=== PATIENT | female | born 1940 | race Caucasian/White ===

== ENCOUNTER 2016-12-24 11:21 | Outpatient (CLI) | payer MEDICARE, OTHER | END 2016-12-24 23:59 | DX: D64.9 Anemia, unspecified (principal); G89.4 Chronic pain syndrome; E03.9 Hypothyroidism, unspecified ==

== ENCOUNTER 2018-01-26 08:00 | Outpatient (CLI) | payer MEDICARE | END 2018-01-26 08:01 | disposition home or self-care (01) | LOC: LAB.R 08:00 | PROVIDERS: ATTEND Physician Assistant Medical | DX: N39.0 Urinary tract infection, site not specified (principal) | CPT/HCPCS: 87086 ==

== ENCOUNTER 2018-05-30 08:00 | Outpatient (CLI) | payer MEDICARE, OTHER ==
[2018-05-30 18:49] LABS: HGB - HEMOGLOBIN 8.5 g/dL (12.0-16.0); MEAN CORPUSCULAR HEMOGLOBIN 30.3 pg (27.0-31.0); MEAN CORPUSCULAR HGB CONC 31.6 g/dL (32.0-36.0); MEAN CORPUSCULAR VOLUME 96.1 fL (81.0-99.0); MEAN PLATELET VOLUME 9.3 fL (7.9-10.8); RED BLOOD COUNT 2.81 10^6/uL (4.20-5.40); RED CELL DISTRIBUTION WIDTH 14.8 % (12.0-15.0); WHITE BLOOD COUNT 6.1 x10^3/uL (4.8-10.8)
[2018-05-30 18:57] LABS: BILIRUBIN,URINE NEGATIVE (NEGATIVE); GLUCOSE, URINE (UA) NEGATIVE (NEGATIVE); KETONES,URINE (UA) NEGATIVE (NEGATIVE); LEUKOCYTE ESTERASE, URINE NEGATIVE (NEGATIVE); NITRITE,URINE NEGATIVE (NEGATIVE); OCCULT BLOOD,URINE NEGATIVE (NEGATIVE); PH,URINE 5.5 PH (5.0-7.5); PROTEIN,URINE NEGATIVE (NEGATIVE); UROBILINOGEN,URINE 0.2 (NORMAL) E.U./dL (NORMAL)
[2018-05-30 19:00] LABS: CALCIUM 8.7 mg/dL (8.5-10.3)
[2018-05-30 19:01] LABS: CLARITY,URINE CLEAR (CLEAR)
[2018-05-30 19:06] LABS: BACTERIA,URINE None Seen /HPF (None Seen); CASTS, URINE 6-10 Hyaline Casts /LPF; EPITHELIAL CELLS,UR None Seen /HPF (<= Few); RBC,URINE 0-5 /HPF (0-5); SQUAMOUS EPITHELIAL CELL,UR RARE Squamous (<= Few)
== END 2018-05-30 08:01 | disposition home or self-care (01) ==
LOC: LAB.WCP 08:00
PROVIDERS: ATTEND Family Medicine
DX: R60.0 Localized edema (principal)
CPT/HCPCS: 36415; 80048; 81001; 85027

== ENCOUNTER 2018-06-13 08:00 | Outpatient (CLI) | payer MEDICARE, OTHER ==
[2018-06-13 12:54] LABS: BASOPHILS % (AUTO) 0.5 %; EOSINOPHILS # (AUTO) 0.3 10^3/uL (0.0-0.7); EOSINOPHILS % (AUTO) 4.6 %; HGB - HEMOGLOBIN 8.9 g/dL (12.0-16.0); LYMPHOCYTES # (AUTO) 1.2 10^3/uL (1.5-3.5); LYMPHOCYTES % (AUTO) 19.1 %; MEAN CORPUSCULAR HEMOGLOBIN 30.7 pg (27.0-31.0); MEAN CORPUSCULAR VOLUME 96.1 fL (81.0-99.0); MONOCYTES # (AUTO) 0.5 10^3/uL (0.0-1.0); MONOCYTES % (AUTO) 8.5 %; NEUTROPHILS # (AUTO) 4.1 10^3/uL (1.5-6.6); NEUTROPHILS % (AUTO) 67.3 %; PLT - PLATELET COUNT 256 10^3/uL (130-450); RED BLOOD COUNT 2.89 10^6/uL (4.20-5.40); RED CELL DISTRIBUTION WIDTH 15.1 % (12.0-15.0); WHITE BLOOD COUNT 6.1 x10^3/uL (4.8-10.8)
[2018-06-13 14:07] LABS: ALBUMIN 2.4 g/dL (3.2-5.5); ALBUMIN/GLOBULIN RATIO 0.8 (1.0-2.2); BILIRUBIN,TOTAL 0.3 mg/dL (0.2-1.0); CALCIUM 8.6 mg/dL (8.5-10.3); CREATININE 1.1 mg/dL (0.4-1.0); TOTAL PROTEIN 5.4 g/dL (6.7-8.2)
== END 2018-06-13 08:01 | disposition home or self-care (01) ==
LOC: LAB.WCP 08:00
PROVIDERS: ATTEND Family Medicine
DX: D64.9 Anemia, unspecified (principal); I11.0 Hypertensive heart disease with heart failure; I50.9 Heart failure, unspecified; R60.0 Localized edema; E03.9 Hypothyroidism, unspecified
CPT/HCPCS: 36415; 80053; 83880; 84443; 85025

== ENCOUNTER 2018-09-30 17:30 | Emergency (ER) | payer MEDICARE, OTHER ==
--- NOTE | 2018-09-30 19:01 | XRAY Report ---
Reason: left shoulder injury after fall Procedure Date: 09/30/2018 Accession Number: [id number] / [id number] Procedure: XR - Shoulder 3 View LT CPT Code: FULL RESULT: EXAM: LEFT SHOULDER RADIOGRAPHY EXAM DATE: 09/30/2018 06:28 PM. CLINICAL HISTORY: Left shoulder injury after fall. COMPARISON: None. TECHNIQUE: 4 views. FINDINGS: Bones: Oblique mildly comminuted fracture of the proximal humeral shaft and neck with mild displacement and angulation. Joints: No dislocation. Narrowing, sclerosis, and spurring of the glenohumeral joint. Soft tissues: The visualized hemithorax is unremarkable. Soft tissue calcification next to the tuberosities. IMPRESSION: 1. Mildly angulated mildly displaced fracture of the proximal humeral shaft/neck. 2. Osteoarthritis of the glenohumeral joint. 3. Calcific tendinitis. RADIA
--- NOTE | 2018-09-30 19:06 | ED Physician Documentation ---
PD HPI UPPER EXT INJURY - Stated complaint Stated Complaint: GLF,L ARM PX - Chief complaint Chief Complaint: Ext Problem - History obtained from History obtained from: Patient - History of Present Illness Location: Left, Shoulder, Arm Type of injury: Fall (she describes tripping on curb stone and falling. Pain to left shoulder/arm. Denies injury to face/neck/chest/abd.) Timing - onset: Today Timing - details: Abrupt onset Improved by: Rest Worsened by: Moving, Palpating Associated symptoms: No: Weakness, Numbness Contributing factors: No: Anticoagulated Similar symptoms before: Has not had sx before Recently seen: Not recently seen Review of Systems Cardiac: denies: Chest pain / pressure GI: denies: Abdominal Pain Skin: denies: Abrasion (s), Laceration (s) Musculoskeletal: denies: Neck pain, Back pain Neurologic: denies: Focal weakness, Numbness PD PAST MEDICAL HISTORY - Past Medical History Cardiovascular: Hypertension Endocrine/Autoimmune: HyPOthyroidism - Past Surgical History Past Surgical History: Yes Ortho: Hip replacement, Knee replacement, Spine surgery - Present Medications Home Medications: Ambulatory Orders Medication Instructions Recorded Confirmed HYDROcod/ACETAM 5/325 [[place] 5/325] 1 tab PO Q6H PRN #20 tablet 09/30/18 FLUoxetine [PROzac] 20 mg PO DAILY 10/02/18 10/02/18 Ferrous Sulfate 325 mg PO 10/02/18 Hydrochlorothiazide 12.5 mg PO 10/02/18 Levothyroxine Sodium [Synthroid] 100 mcg PO 10/02/18 10/02/18 Lisinopril 40 mg PO 10/02/18 Morphine Sulfate 15 mg PO BID PRN 10/02/18 10/02/18 Morphine Sulfate 30 mg PO PRN 10/02/18 - Allergies Allergies/Adverse Reactions: Allergies Allergy/AdvReac Type Severity Reaction Status Date / Time prochlorperazine Allergy Anaphylaxis Verified 10/02/18 08:11 [From Compazine] prochlorperazine edisylate * Allergy Anaphylaxis Verified 10/02/18 08:11 [From Compazine] prochlorperazine maleate * Allergy Anaphylaxis Verified 10/02/18 08:11 [From Compazine] codeine AdvReac Nausea Verified 10/02/18 08:11 - Living Situation Living Situation: reports: With family Living Arrangement: reports: At home - Social History Does the pt smoke?: No Smoking Status: Never smoker Does the pt drink ETOH?: No Does the pt have substance abuse?: No - Immunizations Immunizations are current?: Yes PD ED PE NORMAL - Vitals Vital signs reviewed: Yes - General General: Alert and oriented X 3, No acute distress, Well developed/nourished - HEENT HEENT: Atraumatic - Neck Neck: Supple, no meningeal sign, No bony TTP, No adenopathy - Cardiac Cardiac: RRR, No murmur - Respiratory Respiratory: Clear bilaterally, Other (no chestwall tenderness) - Abdomen Abdomen: Soft, Non tender - Back Back: No spinal TTP - Derm Derm: Normal color, Warm and dry - Extremities Extremities: Other (left proximal humerus with tenderness and guarded ROM. No gross deformity. ) - Neuro Neuro: No motor deficit, No sensory deficit, Other (good pulses at wrist and cap refill at fingers. ) Results - Vitals Vitals: Oxygen O2 Source Room air - Rads (name of study) left shoulder Radiology: Prelim report reviewed, EMP read contemporaneously (proximal humeral shaft fracture. ) PD MEDICAL DECISION MAKING - ED course Complexity details: reviewed results, considered differential (proximal humerus fracture. She lives with family members, so has help. Does not use walker usually. ), d/w patient Departure - Departure Disposition: 01 Home, Self Care Clinical Impression: Fall from slip, trip, or stumble Qualifiers: Encounter type: initial encounter Qualified Code(s): W01.0XXA - Fall on same level from slipping, tripping and stumbling without subsequent striking against object, initial encounter Proximal humerus fracture Qualifiers: Encounter type: initial encounter Fracture type: closed Fracture morphology: other fracture Fracture alignment: nondisplaced Laterality: left Qualified Code(s): S42.295A - Other nondisplaced fracture of upper end of left humerus, initial encounter for closed fracture Condition: Stable Record reviewed to determine appropriate education?: Yes Instructions: ED Fx Upper Ext Follow-Up: [facility] [Provider Group] Prescriptions: HYDROcod/ACETAM 5/325 [[place] 5/325] 1 tab PO Q6H PRN #20 tablet PRN Reason: Pain Comments: Use a sling to keep the arm still to reduce pain and allow healing of the fracture. He will need to have your arm in the sling for about 6 weeks. Follow-up with orthopedics this coming week, call Wednesday for an appointment. You will need to find the best comfortable position for sleeping and rest and this often is a reclined position rather than lying flat. He can sleep with the sling. Use Tylenol or ibuprofen or naproxen if needed for pains. Add hydrocodone if needed for worse pain. The initial pain will improve over the next several days as the swelling and initial injury improved. He will then be a decrease in pain at about a week and a half as the bone segments start healing together. It will take about 6 weeks to heal up though. Discharge Date/Time: 09/30/18 20:46
[2018-09-30] MEDS ORDERED: KETOROLAC 15 MG/ML VIAL IM STA (19:32)
[2018-09-30] MEDS ORDERED: HYDROcod/ACETAM 5/325 MG TABLET PO STA (19:32)
[2018-09-30] MEDS ORDERED: MORPHINE 10 MG/ML VIAL IM STA (20:14)
[2018-09-30 20:37] VITALS: BP 138/69
== END 2018-09-30 20:46 | disposition home or self-care (01) ==
LOC: ED 17:30
DX: S42.292A Other displaced fracture of upper end of left humerus, initial encounter for closed fracture (principal); I10 Essential (primary) hypertension; W01.0XXA Fall on same level from slipping, tripping and stumbling without subsequent striking against object, initial encounter
CPT/HCPCS: 73030; 96372; 99283; 99284; A9270

== ENCOUNTER 2018-10-02 07:45 | Outpatient (CLI) | payer MEDICARE, OTHER | END 2018-10-02 07:46 | disposition critical access hospital (66) | LOC: EMS 07:45 | PROVIDERS: ATTEND Surgery | DX: M79.622 Pain in left upper arm (principal) | CPT/HCPCS: A0425; A0429 ==

== ENCOUNTER 2018-10-02 08:11 | Observation (INO) | payer MEDICARE, OTHER ==
[2018-10-02] MEDS ORDERED: MORPHINE 2 MG/ML CARPUJECT IVP STA ×2 (09:03→10:28)
--- NOTE | 2018-10-02 09:07 | ED Physician Documentation ---
History of Present Illness - Stated complaint Stated Complaint: L ARM FX - Chief complaint Chief Complaint: General - Additonal information Additional information: 78-year-old female withRecent fracture of her proximal humeral head. The dimitrios ent lives alone and was discharged and has been unable to manage her pain or her activities of daily living since returning home. The patient is not able to get out of bed secondary to the pain. The patient has not been able to manage her pain at home. The patient has not been able to make herself food or bathe herself secondary to the significant pain. No new falls or injuries. Symptoms are described as severe. The patient reports significant weakness pain and fatigue. No other associated symptoms. No relieving factors. Review of Systems Constitutional: reports: Fatigue. denies: Fever, Chills Eyes: denies: Discharge Ears: denies: Ear pain Nose: denies: Congestion Throat: denies: Sore throat Cardiac: denies: Chest pain / pressure Respiratory: denies: Cough GI: denies: Abdominal Pain : denies: Dysuria Musculoskeletal: reports: Extremity pain. denies: Neck pain Neurologic: reports: Generalized weakness Psychiatric: denies: Hallucinations PD PAST MEDICAL HISTORY - Past Medical History Past Medical History: Yes Cardiovascular: Hypertension Endocrine/Autoimmune: HyPOthyroidism - Past Surgical History Past Surgical History: Yes Ortho: Hip replacement, Knee replacement, Spine surgery - Present Medications Home Medications: Ambulatory Orders Medication Instructions Recorded Confirmed HYDROcod/ACETAM 5/325 [[place] 5/325] 1 tab PO Q6H PRN #20 tablet 09/30/18 FLUoxetine [PROzac] 20 mg PO DAILY 10/02/18 10/02/18 Ferrous Sulfate 325 mg PO 10/02/18 Hydrochlorothiazide 12.5 mg PO 10/02/18 Levothyroxine Sodium [Synthroid] 100 mcg PO 10/02/18 10/02/18 Lisinopril 40 mg PO 10/02/18 Morphine Sulfate 15 mg PO BID PRN 10/02/18 10/02/18 Morphine Sulfate 30 mg PO PRN 10/02/18 - Allergies Allergies/Adverse Reactions: Allergies Allergy/AdvReac Type Severity Reaction Status Date / Time prochlorperazine Allergy Anaphylaxis Verified 10/02/18 08:11 [From Compazine] prochlorperazine edisylate * Allergy Anaphylaxis Verified 10/02/18 08:11 [From Compazine] prochlorperazine maleate * Allergy Anaphylaxis Verified 10/02/18 08:11 [From Compazine] codeine AdvReac Nausea Verified 10/02/18 08:11 - Social History Does the pt smoke?: No Smoking Status: Never smoker Does the pt drink ETOH?: No Does the pt have substance abuse?: No - Immunizations Immunizations are current?: Yes PD ED PE NORMAL - General General: Other (78-year-old frail appearing female who appears to be in significant discomfort) - HEENT HEENT: Atraumatic, PERRL, EOMI - Neck Neck: Supple, no meningeal sign - Cardiac Cardiac: RRR, Strong equal pulses - Respiratory Respiratory: No respiratory distress - Abdomen Abdomen: Soft, Non tender - Derm Derm: Normal color - Extremities Extremities: No: No deformity (The patient has significant tenderness of the left upper extremity which is placed in a sling.), No tenderness to palpate, Normal ROM s pain - Neuro Neuro: Alert and oriented X 3, Normal speech - Psych Psych: Normal affect Results - Vitals Vitals: Vital Signs - 24 hr 10/02/18 10/02/18 08:08 10:00 Temperature 35.9 C L Heart Rate 86 86 Respiratory 18 16 Rate Blood Pressure 135/73 H 137/74 H O2 Saturation 96 97 Oxygen O2 Source Room air - EKG (time done) 09:05 Rate: Rate (enter#) Rhythm: NSR [place]: Normal Intervals: Normal OK, Prolonged QT QRS: Normal Ischemia: Normal ST segments - Labs Labs: Laboratory Tests 10/02/18 10/02/18 10/02/18 09:00 09:00 09:00 WBC 10.7 RBC 3.20 L Hgb 9.8 L Hct 28.9 L MCV 90.3 MCH 30.5 MCHC 33.8 RDW 15.2 H Plt Count 234 MPV 8.9 Neut # (Auto) 9.0 H Lymph # (Auto) 0.7 L [place] # (Auto) 0.9 Eos # (Auto) 0.0 Baso # (Auto) 0.0 Absolute Nucleated RBC 0.00 Nucleated RBC % 0.0 PT 11.5 INR 1.0 APTT 29.3 Sodium 132 L Potassium 4.2 Chloride 99 L Carbon Dioxide 26 Anion Gap 7.0 BUN 12 Creatinine 0.9 Estimated GFR (MDRD) 61 L Glucose 123 H Calcium 8.6 Total Bilirubin 1.2 H AST 19 ALT 13 Alkaline Phosphatase 84 Troponin I Total Protein 5.7 L Albumin 2.5 L Globulin 3.2 Albumin/Globulin Ratio 0.8 L Lipase 17 L Urine Color Urine Clarity Urine pH Ur Specific [place] Urine Protein Urine Glucose (UA) Urine Ketones Urine Occult Blood Urine Nitrite Urine Bilirubin Urine Urobilinogen Ur Leukocyte Esterase Ur Microscopic Review Urine Culture Comments 10/02/18 10/02/18 09:00 09:15 WBC RBC Hgb Hct MCV MCH MCHC RDW Plt Count MPV Neut # (Auto) Lymph # (Auto) [place] # (Auto) Eos # (Auto) Baso # (Auto) Absolute Nucleated RBC Nucleated RBC % PT INR APTT Sodium Potassium Chloride Carbon Dioxide Anion Gap BUN Creatinine Estimated GFR (MDRD) Glucose Calcium Total Bilirubin AST ALT Alkaline Phosphatase Troponin I < 0.04 Total Protein Albumin Globulin Albumin/Globulin Ratio Lipase Urine Color YELLOW Urine Clarity CLEAR Urine pH 7.5 Ur Specific [place] 1.015 Urine Protein NEGATIVE Urine Glucose (UA) NEGATIVE Urine Ketones NEGATIVE Urine Occult Blood TRACE-INTA Urine Nitrite NEGATIVE Urine Bilirubin NEGATIVE Urine Urobilinogen 0.2 (NORMAL) Ur Leukocyte Esterase NEGATIVE Ur Microscopic Review NOT INDICATED Urine Culture Comments NOT INDICATED PD MEDICAL DECISION MAKING - ED course ED course: 78-year-old female with An acute fracture, the patient has been unable to manage her pain at home and is not able to take care of herself. Unfortunately currently we do not have social work to help find appropriate placement for the patient. The patient will require admission to the hospital for further management of her pain and for an appropriate safe discharge.The findings and plan were discussed with the hospitalist Dr. Rodriguez who accepts the patient onto her service. The findings and plan were discussed the patient who understands and agrees to the plan. Departure - Departure Disposition: ED Place in Observation Clinical Impression: Intractable pain, Weakness Humerus fracture Qualifiers: Encounter type: subsequent encounter Humerus Location: proximal Fracture type: closed Fracture morphology: unspecified fracture morphology Laterality: unspecified laterality Fracture healing: with routine healing Qualified Code(s): S42.209D - Unspecified fracture of upper end of unspecified humerus, subsequent encounter for fracture with routine healing Condition: Fair
[2018-10-02 09:11] LABS: BASOPHILS % (AUTO) 0.3 %; EOSINOPHILS % (AUTO) 0.1 %; HGB - HEMOGLOBIN 9.8 g/dL (12.0-16.0); LYMPHOCYTES # (AUTO) 0.7 10^3/uL (1.5-3.5); LYMPHOCYTES % (AUTO) 6.9 %; MEAN CORPUSCULAR HEMOGLOBIN 30.5 pg (27.0-31.0); MEAN CORPUSCULAR HGB CONC 33.8 g/dL (32.0-36.0); MEAN CORPUSCULAR VOLUME 90.3 fL (81.0-99.0); MEAN PLATELET VOLUME 8.9 fL (7.9-10.8); MONOCYTES # (AUTO) 0.9 10^3/uL (0.0-1.0); MONOCYTES % (AUTO) 8.8 %; NEUTROPHILS % (AUTO) 83.9 %; PLT - PLATELET COUNT 234 10^3/uL (130-450); RED CELL DISTRIBUTION WIDTH 15.2 % (12.0-15.0); WHITE BLOOD COUNT 10.7 x10^3/uL (4.8-10.8)
--- NOTE | 2018-10-02 09:13 | XRAY Report ---
Reason: weakness Procedure Date: 10/02/2018 Accession Number: [id number] / [id number] Procedure: XR - Chest 2 View X-Ray CPT Code: 70089 FULL RESULT: EXAM: CHEST RADIOGRAPHY EXAM DATE: 10/02/2018 08:43 AM. CLINICAL HISTORY: Weakness. COMPARISON: Chest radiograph from 10/17/2016, left shoulder radiographs from 09/30/2018. TECHNIQUE: 2 views. FINDINGS: Lungs/Pleura: The frontal radiograph appears somewhat underpenetrated. There are hazy bibasilar opacities, which appear increased from the prior examination. There is a 10 mm nodular opacity in the lateral right midlung, which is not significantly changed and probably represents a calcified granuloma. Small bilateral pleural effusions present. No pneumothorax. Mediastinum: Cardiac silhouette is mildly enlarged and increased in size from the prior examination. The cell contour is within normal limits. Pulmonary vasculature is mildly engorged. Other: There is partial visualization of a oblique fracture through the proximal humerus. IMPRESSION: 1. Mild enlargement of the cardiac silhouette, increased in size from the prior examination. This may be secondary to cardiomegaly or pericardial effusion. 2. Mild point vascular congestion without overt pulmonary edema. 3. Hazy bibasilar opacities, which may be secondary to small bilateral pleural effusions, atelectasis, and/or infiltrate. RADIA
[2018-10-02 09:14] LABS: PT - PROTHROMBIN TIME 11.5 secs (9.9-12.6)
[2018-10-02 09:22] LABS: ALBUMIN 2.5 g/dL (3.2-5.5); ALBUMIN/GLOBULIN RATIO 0.8 (1.0-2.2); BILIRUBIN,TOTAL 1.2 mg/dL (0.2-1.0); CALCIUM 8.6 mg/dL (8.5-10.3); CREATININE 0.9 mg/dL (0.4-1.0); TOTAL PROTEIN 5.7 g/dL (6.7-8.2)
[2018-10-02 09:28] LABS: BILIRUBIN,URINE NEGATIVE (NEGATIVE); GLUCOSE, URINE (UA) NEGATIVE (NEGATIVE); KETONES,URINE (UA) NEGATIVE (NEGATIVE); LEUKOCYTE ESTERASE, URINE NEGATIVE (NEGATIVE); NITRITE,URINE NEGATIVE (NEGATIVE); OCCULT BLOOD,URINE TRACE-INTA (NEGATIVE); PH,URINE 7.5 PH (5.0-7.5); PROTEIN,URINE NEGATIVE (NEGATIVE); UROBILINOGEN,URINE 0.2 (NORMAL) E.U./dL (NORMAL)
[2018-10-02 09:32] LABS: CLARITY,URINE CLEAR (CLEAR)
[2018-10-02] MEDS ORDERED: SODIUM CHLORIDE FLUSH 0.9% 10 ML SYRINGE IVP PRN (10:56)
[2018-10-02] MEDS ORDERED: ONDANSETRON ODT 4 MG TABLET TL PRN (10:56)
[2018-10-02] MEDS ORDERED: SODIUM CHLORIDE 0.9% 1,000 ML IV SCH (11:00)
--- NOTE | 2018-10-02 11:09 | HISTORY & PHYSICAL EXAMINATION ---
Chief Complaint - Chief Complaint Chief Complaint: Left arm pain and cannot take care of herself after a fracture History of Present Illness - Admitted From Admitted From:: Home/ER - History Obtained From [facility] History obtained from: patient and Dr. Ball and Case Managment Exam Limitations: none - History of Present Illness HPI Comment/Other: 78-year-old white female who has chronic pain syndrome. She is in a pain contract with her primary care provider, Meagan Malhotra for long-acting narcotics. She has chronic low back pain. She has had multiple surgeries on her back. She recently fell, and was seen in the emergency room by Dr. Thomas on September 30. She is a mildly angulated mildly displaced fracture of the proximal humeral shaft/neck. Osteoarthritis of the glenohumeral joint and travel counselor of calcific tendinitis. She was sent home to follow-up with orthopedic surgery after having her arm placed in a sling. She was to keep her arm in a sling for the next 6 weeks and follow-up with orthopedic surgery in the next week. It was advised that she would probably have to sleep in a reclining position rather than laying flat. That she could sleep with the sling. Since returning home, she has been unable to manage her pain or her activities of daily living. She has 2 granddaughters that live with her. One is in her 30s, and the other one is about 11 years old. But they can not help her to even get up to go to the bathroom. The granddaughter who is in her 30s has early multiple sclerosis can barely take care of herself much less her grandmother. The 11-year-old is just too young.Child protective services is already been notified about the condition of the 11-year-old She has tried calling A good friend of hers, Fausto, who usually helps her with things like this, who lives in the same town she does, but he is not answering her phone calls. Fausto and his were able to go to the grocery store and bring her groceries and pain medicine. The because she cannot get out of bed, she was not able to reach her pain medicines. She was able to get out of bed and finally had to be incontinent of urine in the bed because she could not get out. She has been un able to make herself food, or bathe herself secondary to significant pain. She denies fever, chills. No cough. No abdominal pain. No urgency frequency dysuria. She has had no further falls. In the emergency room she was afebrile, normotensive, oxygenating normally. She was a frail-appearing female who is in significant discomfort. But otherwise had clear lungs, normal abdominal exam. The arm was in a sling. Her white cell count was 10.7, she has chronic anemia of 9.8 hemoglobin. Mildly reduced sodium at 132. BUN and creatinine normal. Chest x-ray was done and negative. Case management has attempted to place the patient for respite care in our shelter facility that is nearby. However the patient says that she does not have a $300 a day to afford that. She has signed an advanced beneficiary notice to come into the hospital. She is requesting that we find in-home [facility] that would be able to take care of her at no cost to her. She is followed by Dr. Meagan Malhotra. Last seen by Dr. Malhotra in her office May 2018. The patient has been compliant with getting B12 injections, and there is been no escalation of her use of medications. History - Past Medical History Cardiovascular: reports: Hypertension Respiratory: reports: None Neuro: reports: None Endocrine/Autoimmune: reports: HyPOthyroidism GI: reports: None TRUSTEE OF ESTATE: reports: Other () : reports: Incontinence HEENT: reports: Chronic vision loss Psych: reports: Depression, Anxiety Musculoskeletal: reports: Osteopenia (Fosamax recommened 10/2014), Chronic back pain (on long acting opiates and has pain contract since 08/2013) Derm: reports: None MRSA Hx?: No Other Past Medical History: Pernicious and iron deficiency anemia. FOBT have been positive in the past and she refused EGD or colonoscopy bc the last scope "almost killed her". Ran out of iron pills when she was homeless in Summer 2017 and anemia worsened. Back on iron pills. - Past Surgical History General: reports: Cholecystectomy, Gastric surgery (gastroplasty 1979) Ortho: reports: Hip replacement (bilateral), Knee replacement, Arthroscopic surgery (right knee), Spine surgery (1 lumbar laminectomies, 1 cervical fusion, 1 lumbar fusion) /TRUSTEE OF ESTATE: reports: Hysterectomy, Oophrectomy - Family & Social History Family History Comment/Other: Mom age 71 and had CVA, htn. Dad was murdered at the age of 50. Sisters are from numerous medical issues as well as one dying of multiple sclerosis at the age of 30. 3 sons. 1 has neurolo gical disorders and back problems and he walks with a cane. One lives in [place]. One lives in [place]. Living arrangement: At home Living Situation: With family Social History Notes: Born and raised in [place]. Has been 2 times. First is . 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 She was a former smoker that had a 10-year pack history. Started smoked 1950,quite 1963. No history of alcohol abuse. After her second , [place]. She initially worked at [employer], but ended up stopping working there because of back pain.She was homeless in summer 2017 after losing the place they had rented for 10 years. Patient lives on and was living in hotels then finally [address] for a month. Again child protective services been notified since she is not at home, and her 30-year-old granddaughter cannot take care of her 11-year-old granddaughter. - Substance History Use: Uses substance without health or social issues: NONE Abuse: Recurrent use of substance despite neg consequences: NONE Dependence: Experiences withdrawal or developed tolerances: NONE - POLST Patient has POLST: No POLST Status: Full Code Meds/Allgy - Home Medications Home Medications: Ambulatory Orders Medication Instructions Recorded Confirmed FLUoxetine [PROzac] 30 mg PO DAILY 10/02/18 10/02/18 Ferrous Sulfate 325 mg PO DAILY 10/02/18 10/02/18 Hydrochlorothiazide 12.5 mg PO DAILY 10/02/18 10/02/18 Levothyroxine Sodium [Synthroid] 100 mcg PO QDAC 10/02/18 10/02/18 Lisinopril 40 mg PO DAILY 10/02/18 10/02/18 Morphine Sulfate 15 mg PO BID PRN 10/02/18 10/02/18 Morphine Sulfate [Ms Contin] 30 mg PO BID 10/02/18 10/02/18 - Allergies Allergies/Adverse Reactions: Allergies Allergy/AdvReac Type Severity Reaction Status Date / Time prochlorperazine Allergy Anaphylaxis Verified 10/02/18 08:11 [From Compazine] prochlorperazine edisylate * Allergy Anaphylaxis Verified 10/02/18 08:11 [From Compazine] prochlorperazine maleate * Allergy Anaphylaxis Verified 10/02/18 08:11 [From Compazine] codeine AdvReac Nausea Verified 10/02/18 08:11 Review of Systems - Constitutional Constitutional: reports: Fatigue. denies: Fever, Chills, Malaise, Weakness, Poor appetite - Eyes Eyes: denies: Pain, Irritation, Field loss, Vision loss - Ears, Nose & Throat Ears, Nose & Throat: denies: Ear pain, Tinnitus, Nasal obstruction, Nasal congestion, Postnasal drainage, Sore throat - Cardiovascular Cariovascular: reports: Edema (in March 2018 and eval for CHF. lasix prn.). denies: Irregular heart rate, Palpitations, Chest pain, Lightheadedness, Syncope, Exertional dyspnea - Respiratory Respiratory: denies: Cough, Sputum production, Wheezing, Snoring - Gastrointestinal Gastrointestinal: reports: Reflux/heartburn. denies: Abdominal pain, Abdominal distention, Constipation, Diarrhea, Rectal bleeding, Enrrique blood emesis - Genitourinary Genitourinary: reports: Urgency, Incontinence. denies: Dysuria, Frequency, Hematuria - Musculoskeletal Musculoskeletal: reports: Muscle pain, Back pain, Muscle aches, Limited range of motion, Joint pain (especially in hips and gets joint injections w Dr. Mitchell). denies: Stiffness, Muscle weakness, Gout - Integumentary Integumentary: denies: Rash, Pruritis - Neurological Neurological: reports: Other (had 3 days where she couldn't speak this last summer 2017 and refused eval for CVA w PCP.). denies: General weakness, Focal weakness - Psychiatric Psychiatric: reports: Depression, Anxiety - Endocrine Endocrine: reports: Polyuria. denies: Polydypsia, Polyphagia - Hematologic/Lymphatic Hematologic/Lymphatic: denies: Anemia, Bruising Prior Level of Functionality: She lives in her own apartment with her granddaughters. 1 of her sons lives nearby. She is usually independent with activities of daily living. Mobility is limited by back pain but she does not use a cane or a walker. Was independent until she fell and broke her arm 3 days ago. She is on a limited fixed income. She does not drive. But prior to falling she was able to bathe herself, feed herself, go grocery shopping, pay bills etc. Exam - Vital Signs Reviewed Vital Signs: Yes Vital Signs: Vital Signs x48h Temp Pulse Resp BP Pulse Ox 10/02/18 10:58 80 14 140/61 H 94 10/02/18 10:00 86 16 137/74 H 97 10/02/18 08:08 35.9 C L 86 18 135/73 H 96 - Physical Exam General Appearance: positive: No acute distress, Alert, Other (78-year-old female who looks older than stated age, partially edentulous, comfortable in the bed watching TV) Eyes Bilateral: positive: PERRL ENT: positive: No signs of dehydration, Other (Partially edentulous, no dry lips, pink moist oral mucosa) Neck: positive: No JVD. negative: Lymphadenopathy (R), Lymphadenopathy (L), Stiff neck, Carotid bruit Respiratory: positive: Chest non-tender, No respiratory distress. negative: Wheezes, Rales, Rhonchi Cardiovascular: positive: Regular rate & rhythm, Systolic murmur. negative: Gallop/S4, Friction rub Peripheral Pulses: positive: 1+ Abdomen: positive: Non-tender, No organomegaly, Nml bowel sounds, No distention Skin: positive: Warm, Dry Extremities: positive: No pedal edema. negative: Full ROM (Left upper extremity in a sling. While there is edema in the upper arm, trace edema in the forearm, full mobility of the left wrist, fingers. Right arm has full mobility.) Neurologic/Psychiatric: positive: Oriented x3, CN's nml (2-12), Motor nml Conclusion/Plan - Problem List (1) Self-care deficit for feeding, bathing, and toileting Conclusion/Plan: Due to left arm immobilization from fracture. And some pain. Plan: Placed in observation For pain management Patient offered aid to help her base today and she declines at this time Work with social service tomorrow morning to see what help we can offer this woman. (2) Humerus fracture Conclusion/Plan: The plan is not change. She will be kept in a sling. Pain management continues with her long-acting narcotics and short acting narcotics as needed for breakthrough pain. She was due to see orthopedics in the next week or 2 but the plan was overall 6 weeks of healing to be allowed.Dr. Luong is aware of the patie nt. Does not feel the need to be involved in her care at this time. Qualifiers: Encounter type: subsequent encounter Humerus Location: proximal Fracture type: closed Fracture morphology: unspecified fracture morphology Laterality: left Fracture healing: with routine healing Qualified Code(s): S42.202D - Unspecified fracture of upper end of left humerus, subsequent encounter for fracture with routine healing (3) Chronic anemia Conclusion/Plan: From both iron deficiency anemia and pernicious anemia. She will be continued on her iron supplementation and B12 injections when appropriate. We will check CEA while she is here. In the medical record it is documented that she refuses follow-up colonoscopies. When discussed today she again declines referral for colonoscopy. She does not meet criteria for transfusion at this time. (4) Hyponatremia Conclusion/Plan: Most likely from lack of p.o. intake. 0.9 normal saline IV fluids times 1 L. Recheck BMP in the morning. - Lab Results Fish Bones: 10/02/18 09:00 10/02/18 09:00 Core Measures - Anticipated LOS I expect patient to be DC'd or transferred within 96 hours.: Yes - DVT/VTE - Prophylaxis VTE/DVT Device ordered at admit?: Yes
[2018-10-02] MEDS: MORPHINE IR 15 MG TABLET PO PRN ×2 (11:45→21:49)
[2018-10-02] MEDS: SODIUM CHLORIDE FLUSH 0.9% 10 ML SYRINGE IVP SCH (15:27)
[2018-10-02] MEDS: oxyCODONE 5 MG TABLET PO PRN ×2 (16:18→20:14)
[2018-10-02] MEDS: ACETAMINOPHEN 325 MG TABLET PO PRN (18:48)
[2018-10-02] MEDS: FLUoxetine 10 MG CAPSULE PO SCH (20:14)
[2018-10-02] MEDS: TEMAZEPAM 15 MG CAPSULE PO PRN (21:49)
[2018-10-03] MEDS: SODIUM CHLORIDE FLUSH 0.9% 10 ML SYRINGE IVP SCH ×3 (00:16→20:41)
[2018-10-03] MEDS: ACETAMINOPHEN 325 MG TABLET PO PRN ×4 (03:34→20:42)
[2018-10-03] MEDS: oxyCODONE 5 MG TABLET PO PRN ×4 (03:34→20:42)
[2018-10-03] MEDS: LEVOTHYROXINE 100 MCG TABLET PO SCH (06:02)
[2018-10-03] MEDS: LISINOPRIL 20 MG TABLET PO SCH (08:09)
[2018-10-03] MEDS: FLUoxetine 10 MG CAPSULE PO SCH ×2 (08:09→20:42)
[2018-10-03] MEDS: FERROUS SULFATE 325 MG TABLET PO SCH (08:09)
[2018-10-03] MEDS: MORPHINE IR 15 MG TABLET PO PRN ×2 (08:10→18:48)
[2018-10-03] MEDS: POLYETHYLENE GLYCOL 3350 17 GM PACKET PO SCH (08:10)
[2018-10-03] MEDS ORDERED: MORPHINE SULFATE 30 MG PO SCH ×2 (11:15→21:00)
[2018-10-03] MEDS: MORPHINE ER 15 MG TABLET PO SCH ×2 (13:57→20:42)
--- NOTE | 2018-10-03 17:43 | PROVIDER PROGRESS NOTE ---
Subjective - Prog Note Date Prog Note Date: 10/03/18 Prog Note Time: 17:44 - Subjective Subjective: needs a lot of positive reinforcement to get out of bed. to walk. we're trying to get bed with trapeze to help her. she is eating well her med rec was incorrect and she was getting 1/2 of her usual pain meds here. Current Medications - Current Medications Current Medications: Active Medications Acetaminophen (Tylenol) 650 mg PO Q4HR PRN PRN Reason: Pain 1 to 4 Last Admin: 10/03/18 16:24 Dose: 650 mg Ferrous Sulfate (Feosol) 325 mg PO DAILY [facility] Last Admin: 10/03/18 08:09 Dose: 325 mg Fluoxetine HCl (Prozac) 20 mg PO DAILY [facility] Last Admin: 10/03/18 08:09 Dose: 20 mg Fluoxetine HCl (Prozac) 10 mg PO QPM [facility] Last Admin: 10/02/18 20:14 Dose: 10 mg Levothyroxine Sodium (Synthroid) 100 mcg PO QDAC [facility] Last Admin: 10/03/18 06:02 Dose: 100 mcg Lisinopril (Zestril) 40 mg PO DAILY [facility] Last Admin: 10/03/18 08:09 Dose: 40 mg Morphine Sulfate (Ms Ir) 15 mg PO BID PRN PRN Reason: PAIN Last Admin: 10/03/18 08:10 Dose: 15 mg Morphine Sulfate () 30 mg PO BID [facility] Last Admin: 10/03/18 13:57 Dose: 30 mg Ondansetron HCl (Zofran Odt) 4 mg TL Q6HR PRN PRN Reason: Nausea / Vomiting Last Admin: 10/02/18 13:47 Dose: 4 mg Oxycodone HCl (Roxicodone) 5 mg PO Q4HR PRN PRN Reason: Pain 5 to 7 Last Admin: 10/03/18 16:24 Dose: 5 mg Polyethylene Glycol (Miralax) 17 gm PO DAILY [facility] Last Admin: 10/03/18 08:10 Dose: Not Given Sodium Chloride (Normal Saline Flush 0.9%) 10 ml IVP PRN PRN PRN Reason: NEEDED PER PROVIDER ORDERS Sodium Chloride (Normal Saline Flush 0.9%) 10 ml IVP 0100,0900,1700 [facility] Last Admin: 10/03/18 08:10 Dose: 10 ml Temazepam (Restoril) 15 mg PO QPM PRN PRN Reason: Insomnia Last Admin: 10/02/18 21:49 Dose: 15 mg FLUoxetine [PROzac] 10 mg PO QPM 10/02/18 FLUoxetine [PROzac] 20 mg PO DAILY 10/02/18 Ferrous Sulfate 325 mg PO DAILY 10/02/18 Hydrochlorothiazide 12.5 mg PO DAILY 10/02/18 Levothyroxine Sodium [Synthroid] 100 mcg PO QDAC 10/02/18 Lisinopril 40 mg PO DAILY 10/02/18 Morphine Sulfate 15 mg PO BID 10/02/18 Morphine Sulfate [Ms Contin] 30 mg PO BID 10/02/18 Multivitamin [Theragran] 1 each PO DAILY 10/02/18 Objective - Vital Signs/Intake & Output Reviewed Vital Signs: Yes Vital Signs: Vital Signs x48h Temp Pulse Pulse Resp BP Pulse Ox 10/03/18 15:53 36.9 C 97 16 120/66 93 10/03/18 11:06 36.3 C L 74 14 93 Intake & Output: Intake & Output 10/01/18 10/02/18 10/02/18 10/03/18 00:59 00:59 23:59 23:59 Intake Total 880 Output Total 1050 Balance -170 - Objective General Appearance: positive: Alert, Moderate distress (half emotional w crying and sadness as well as pain) Eyes Bilateral: positive: PERRL, EOMI ENT: positive: Pharynx nml Neck: positive: No JVD Respiratory: positive: Chest non-tender, No respiratory distress. negative: Wheezes, Rales, Rhonchi Cardiovascular: positive: Regular rate & rhythm Abdomen: positive: Non-tender, No organomegaly, Nml bowel sounds Skin: positive: Warm, Dry Extremities: positive: No pedal edema, Other (arm in sling, moving fingers and wrist well) Neurologic/Psychiatric: positive: Oriented x3, CN's nml (2-12), Motor nml - Lab Results Fish Bones: 10/02/18 09:00 10/02/18 09:00 ABX Reporting Has patient been on IV antibiotics over the past 48 hours?: No Assessment/Plan - Problem List (1) Self-care deficit for feeding, bathing, and toileting Impression: Due to left arm immobilization from fracture. And some pain. Plan: Placed in observation For pain management She continues to be tearful. Stating that is just too difficult to get out of bed. We essentially controlled her to get up and walk, and taught her how to use her right arm to mobilize her body Patient offered aid to help her go to SNF for respite on admission and she declined at that time and today Social work continues to work with her and may be able to go home tomorrow (2) Humerus fracture Conclusion/Plan: The plan is not change. She will be kept in a sling. Pain management continues with her long-acting narcotics and short acting narcotics as needed for breakthrough pain. She was due to see orthopedics in the next week or 2 but the plan was overall 6 weeks of healing to be allowed.Dr. Luong is aware of the patie nt. Does not feel the need to be involved in her care at this time. Qualifiers: Encounter type: subsequent encounter Humerus Location: proximal Fracture type: closed Fracture morphology: unspecified fracture morphology Laterality: left Fracture healing: with routine healing Qualified Code(s): S42.202D - Unspecified fracture of upper end of left humerus, subsequent encounter for fracture with routine healing (3) Chronic anemia Conclusion/Plan: From both iron deficiency anemia and pernicious anemia. She will be continued on her iron supplementation and B12 injections when appropriate. We will check CEA while she is here. In the medical record it is documented that she refuses follow-up colonoscopies. When discussed today she again declines referral for colonoscopy. She does not meet criteria for transfusion at this time. (4) Hyponatremia Conclusion/Plan: Most likely from lack of p.o. intake. 0.9 normal saline IV fluids times 1 L. Recheck BMP today
[2018-10-03 18:08] LABS: CALCIUM 8.5 mg/dL (8.5-10.3); CREATININE 1.2 mg/dL (0.4-1.0)
[2018-10-03] MEDS: TEMAZEPAM 15 MG CAPSULE PO PRN (20:46)
[2018-10-04] MEDS: SODIUM CHLORIDE FLUSH 0.9% 10 ML SYRINGE IVP SCH ×2 (00:50→08:45)
[2018-10-04] MEDS: ACETAMINOPHEN 325 MG TABLET PO PRN ×2 (04:43→08:44)
[2018-10-04] MEDS: oxyCODONE 5 MG TABLET PO PRN ×2 (04:43→08:44)
[2018-10-04] MEDS: LEVOTHYROXINE 100 MCG TABLET PO SCH (05:57)
[2018-10-04] MEDS: MORPHINE IR 15 MG TABLET PO PRN (07:40)
[2018-10-04 08:01] VITALS: BP 117/56
[2018-10-04] MEDS: LISINOPRIL 20 MG TABLET PO SCH (08:44)
[2018-10-04] MEDS: MORPHINE ER 15 MG TABLET PO SCH (08:44)
[2018-10-04] MEDS: FLUoxetine 10 MG CAPSULE PO SCH (08:44)
[2018-10-04] MEDS: FERROUS SULFATE 325 MG TABLET PO SCH (08:44)
[2018-10-04] MEDS: POLYETHYLENE GLYCOL 3350 17 GM PACKET PO SCH (08:45)
--- NOTE | 2018-10-04 08:45 | Discharge Plan ---
Discharge Plan Disposition: 01 Home, Self Care Condition: Fair Diet: Regular Activity Restrictions: Activity as Tolerated Shower Restrictions: No Driving Restrictions: Yes (no driving) Assistance Devices: Sling Additional Instructions or Follow Up instructions: You were placed in observation because you had broken your humerus on your left arm and couldn't function with how to dress, feed yourself, cook, or even bathe yourself with this broken arm. Unfortunately the two granddaughters that live with you could not help you. You came here to get help. We have found a director career services that is willing to go to your house and help you. Use a sling to keep the arm still to reduce pain and allow healing of the fracture. You will need to have your arm in the sling for about 6 weeks. Follow-up with orthopedics this coming week, call Wednesday for an appointment. You will need to find the best comfortable position for sleeping and rest and this often is a reclined position rather than lying flat. You can sleep with the sling. Use Tylenol or ibuprofen or naproxen if needed for pains. You are already on long acting and short acting morphine and have diligently followed your pain contract with your primary care provider. The initial pain will improve over the next several days as the swelling and initial injury improved. You will then have a decrease in pain at about a week and a half as the bone segments start healing together. It will take about 6 weeks to heal up though. Please see No Smoking: If you smoke, Please STOP! Call for help. Follow-up with: Emily Malhotra DO [Provider Admit Priv/Credential] - Brayan Waldron MD [Provider Admit Priv/Credential] -
--- NOTE | 2018-10-04 15:46 | DISCHARGE SUMMARY ---
Physician: Bindu Rodriguez MD DATE OF ADMISSION: 10/02/2018 DATE OF DISCHARGE: 10/04/2018 DISCHARGE DIAGNOSES 2. Self-care deficit for feeding, bathing, and toileting. 1. Left humerus fracture. 3. Chronic anemia. 4. Hyponatremia. 5. Chronic pain syndrome. DISCHARGE MEDICATIONS 1. Ferrous sulfate 325 mg p.o. daily. 2. Prozac 20 mg in the morning and 10 mg in the evening. 3. Hydrochlorothiazide 12.5 p.o. daily. 4. Synthroid 100 mcg daily. 5. Lisinopril 40 mg daily. 6. Morphine sulfate 15 mg p.o. b.i.d. p.r.n. 7. Morphine extended-release 30 mg p.o. b.i.d. 8. Multivitamin 1 p.o. daily. 9. Tylenol 650 mg p.o. every 4 hours p.r.n. pain. PRINCIPAL PROCEDURE: Chest x-ray without any acute cardiopulmonary process. HOSPITAL COURSE: This patient is a 78-year-old female, who lives with a 38-year-old granddaughter, who has early multiple sclerosis and is disabled. She also lives with an 11-year-old granddaughter whom she is helping raise. She fell and broke her arm 2 days ago and has been unable to take care of herself. She cannot get out of bed. She has been peeing in the bed. Granddaughters cannot bring her food. They also cannot even help her get out of bed. She finally came to the emergency room, was disheveled, dehydrated, and crying in pain. She was offered placement in a prison facility, but it was going to be $300 a day, and she did not have the money. She only wanted to come to the hospital, so she signed an ABN, and she was placed in observation for pain management and training with occupational therapy to allow her to understand how to get out of bed with a broken arm. Broken arm is on the left side. She received hydration, p.o. pain meds, teaching with occupational therapy. She finally agreed to an in-home provider that she will pay for $15 an hour and that will start on the day of discharge. Otherwise, her other medical problems of chronic anemia stayed stable. She is known to have iron deficiency anemia and refuses to get colonoscopy because "the last colonoscopy almost killed her." She has known chronic pain syndrome, for which she is on long-acting and short-acting morphine, and those were continued during her stay. Through medication reconciliation there was an error made, and she did not get her usual dosing the first day she was here, so she was in quite a bit of pain. That was rectified, and those were resumed on discharge. VITAL SIGNS: On the day of discharge: Temperature 36.7. Pulse 93. Blood pressure 117/56. Respirations 18 and 94% on room air. REVIEW OF SYSTEMS: GENERAL: She is an alert, oriented, elderly female who looks her stated age, tearful at the idea of having to go home. She can get up with a gait belt and a walker. LUNGS: Clear. CARDIOVASCULAR: Regular rate and rhythm with a soft systolic murmur. ABDOMEN: Quiet hypoactive bowel sounds, nontender abdomen. No masses. EXTREMITIES: She has ecchymosis of the left upper extremity where she has had her break, edema of the left upper extremity. Lower extremities are without edema. FOLLOWUP: She is to follow up with her primary care provider, Emily Malhotra. TD: 10/04/2018 11:46 PEG
== END 2018-10-04 11:07 | disposition home or self-care (01) ==
LOC: ED 08:11 → MS2 10:56
PROVIDERS: ADMIT Specialist; ATTEND Specialist
DX: Z73.6 Limitation of activities due to disability (principal); S42.202D Unspecified fracture of upper end of left humerus, subsequent encounter for fracture with routine healing; G89.4 Chronic pain syndrome; M54.5 Low back pain; D50.9 Iron deficiency anemia, unspecified; Z59.8 Other problems related to housing and economic circumstances; D51.0 Vitamin B12 deficiency anemia due to intrinsic factor deficiency; E87.1 Hypo-osmolality and hyponatremia; I10 Essential (primary) hypertension; E03.9 Hypothyroidism, unspecified; R32 Unspecified urinary incontinence; H54.7 Unspecified visual loss; F32.9 Major depressive disorder, single episode, unspecified; F41.9 Anxiety disorder, unspecified; M85.80 Other specified disorders of bone density and structure, unspecified site; Z79.891 Long term (current) use of opiate analgesic; R19.5 Other fecal abnormalities; Z96.643 Presence of artificial hip joint, bilateral; Z96.659 Presence of unspecified artificial knee joint; Z98.1 Arthrodesis status; Z87.891 Personal history of nicotine dependence
CPT/HCPCS: 36415; 71046; 80048; 80053; 81003; 83690; 84484; 85025; 85610; 85730; 93005; 96361; 96374; 96375; 96376; 99284; 99285; A9270; G0378; Q0162; 81001; 87086

== ENCOUNTER 2019-06-08 08:00 | Outpatient (CLI) | payer MEDICARE, OTHER ==
[2019-06-08 18:31] LABS: HGB - HEMOGLOBIN 9.9 g/dL (12.0-16.0); MEAN CORPUSCULAR HEMOGLOBIN 30.6 pg (27.0-31.0); MEAN CORPUSCULAR HGB CONC 29.6 g/dL (32.0-36.0); MEAN CORPUSCULAR VOLUME 103.4 fL (81.0-99.0); MEAN PLATELET VOLUME 11.1 fL (7.9-10.8); RED BLOOD COUNT 3.24 10^6/uL (4.20-5.40); RED CELL DISTRIBUTION WIDTH 14.7 % (12.0-15.0); WHITE BLOOD COUNT 6.7 x10^3/uL (4.8-10.8)
[2019-06-08 18:43] LABS: CALCIUM 8.9 mg/dL (8.5-10.3); CREATININE 1.1 mg/dL (0.4-1.0)
== END 2019-06-08 08:01 | disposition home or self-care (01) ==
LOC: LAB.WCP 08:00
PROVIDERS: ATTEND Family Medicine
DX: R60.9 Edema, unspecified (principal)
CPT/HCPCS: 36415; 80048; 85027

== ENCOUNTER 2019-07-18 08:00 | Outpatient (CLI) | payer MEDICARE, OTHER ==
[2019-07-18 18:48] LABS: CALCIUM 8.8 mg/dL (8.5-10.3); CREATININE 1.3 mg/dL (0.4-1.0)
== END 2019-07-18 23:59 | disposition home or self-care (01) ==
LOC: LAB.WCP 08:00
PROVIDERS: ATTEND Physician Assistant
DX: R60.9 Edema, unspecified (principal)
CPT/HCPCS: 36415; 80048

== ENCOUNTER 2019-07-25 11:33 | Outpatient (CLI) | payer MEDICARE, OTHER, MEDICAID ==
[2019-07-25 18:43] LABS: CALCIUM 8.6 mg/dL (8.5-10.3); CREATININE 1.3 mg/dL (0.4-1.0)
== END 2019-07-25 23:59 | disposition home or self-care (01) ==
LOC: LAB.WCP 11:33
PROVIDERS: ATTEND Physician Assistant
DX: R60.9 Edema, unspecified (principal)
CPT/HCPCS: 36415; 80048

== ENCOUNTER 2019-08-09 08:00 | Outpatient (CLI) | payer MEDICARE, OTHER, MEDICAID ==
[2019-08-09 12:42] LABS: CALCIUM 8.4 mg/dL (8.5-10.3); CREATININE 1.5 mg/dL (0.4-1.0)
== END 2019-08-09 23:59 | disposition home or self-care (01) ==
LOC: LAB.WCP 08:00
PROVIDERS: ATTEND Family Medicine
DX: R60.9 Edema, unspecified (principal)
CPT/HCPCS: 36415; 80048

== ENCOUNTER 2019-08-17 10:01 | Outpatient (CLI) | payer MEDICARE, OTHER, MEDICAID | END 2019-08-17 10:02 | disposition home or self-care (01) | LOC: DI 10:01 | PROVIDERS: ATTEND Physician Assistant | DX: R60.0 Localized edema (principal); I27.20 Pulmonary hypertension, unspecified; I51.7 Cardiomegaly | CPT/HCPCS: 93306 ==

== ENCOUNTER 2019-08-17 11:04 | Outpatient (CLI) | payer MEDICARE, OTHER, MEDICAID ==
--- NOTE | 2019-08-17 15:53 | Ultrasound Report ---
Reason: LEFT LEG EDEMA Procedure Date: 08/17/2019 Accession Number: [id number] / [id number] Procedure: US - Duplex Ext Veins Left CPT Code: FULL RESULT: EXAM: LEFT LOWER EXTREMITY VENOUS ULTRASOUND EXAM DATE: 08/17/2019 12:01 PM. CLINICAL HISTORY: LEFT LEG EDEMA. COMPARISON: None. TECHNIQUE: Real-time sonographic vascular imaging was performed by the java oracle developer through the lower extremity utilizing both color-flow and Doppler spectral analysis. Multiple business banking representative static images were saved for review. FINDINGS: Left side Common Femoral Vein (CFV): Normal. CFV-GSV Junction: Normal. Profunda Femoral Vein (PFV): Normal. Femoral Vein (FV) Prox: Normal. Femoral Vein (FV) Mid: Normal. Femoral Vein (FV) Dist: Normal. Popliteal Vein: Normal. Posterior Tibial Veins: Normal. Peroneal Veins: Normal. Other: None. IMPRESSION: No evidence for deep venous thrombosis left lower extremity. RADIA
== END 2019-08-17 11:05 | disposition home or self-care (01) ==
LOC: DI 11:04
PROVIDERS: ATTEND Family Medicine
DX: R60.0 Localized edema (principal)

== ENCOUNTER 2019-10-06 09:37 | Outpatient (CLI) | payer MEDICARE, OTHER, MEDICAID ==
--- NOTE | 2019-10-06 13:54 | XRAY Report ---
Reason: RIGHT PLANTAR FASCIITIS Procedure Date: 10/06/2019 Accession Number: [id number] / [id number] Procedure: WCP - Foot 3 View RT CPT Code: Final Report FULL RESULT: EXAM: RIGHT FOOT RADIOGRAPHY EXAM DATE: 10/06/2019 09:37 AM. CLINICAL HISTORY: Right heel pain with no known injury. Suspect plantar fasciitis. COMPARISON: None. TECHNIQUE: 3 views. FINDINGS: Bones: Normal. No fractures or bone lesions. Joints: Normal. No subluxations. Soft Tissues: Lateral view demonstrates a 3 mm well-rounded calcification projecting over the soft tissues along the plantar fascia at the level of the calcaneus. IMPRESSION: Soft tissue calcification in the region of the plantar fascia. RADIA
== END 2019-10-06 23:59 | disposition home or self-care (01) ==
LOC: DI.WCP 09:37
PROVIDERS: ATTEND Family Medicine
DX: M72.2 Plantar fascial fibromatosis (principal)

== ENCOUNTER 2020-04-25 14:39 | Outpatient (CLI) | payer MEDICAID, MEDICARE ==
[2020-04-25 17:51] LABS: BASOPHILS # (AUTO) 0.1 10^3/uL (0.0-0.1); BASOPHILS % (AUTO) 0.7 %; EOSINOPHILS # (AUTO) 0.3 10^3/uL (0.0-0.7); EOSINOPHILS % (AUTO) 4.9 %; HGB - HEMOGLOBIN 9.6 g/dL (12.0-16.0); LYMPHOCYTES # (AUTO) 1.4 10^3/uL (1.5-3.5); LYMPHOCYTES % (AUTO) 20.2 %; MEAN CORPUSCULAR HEMOGLOBIN 30.5 pg (27.0-31.0); MEAN CORPUSCULAR VOLUME 101.6 fL (81.0-99.0); MEAN PLATELET VOLUME 11.5 fL (7.9-10.8); MONOCYTES # (AUTO) 0.6 10^3/uL (0.0-1.0); MONOCYTES % (AUTO) 8.4 %; NEUTROPHILS # (AUTO) 4.4 10^3/uL (1.5-6.6); NEUTROPHILS % (AUTO) 65.5 %; PLT - PLATELET COUNT 247 10^3/uL (130-450); RED BLOOD COUNT 3.15 10^6/uL (4.20-5.40); RED CELL DISTRIBUTION WIDTH 15.3 % (12.0-15.0); WHITE BLOOD COUNT 6.7 x10^3/uL (4.8-10.8)
[2020-04-25 18:23] LABS: ALBUMIN 2.4 g/dL (3.2-5.5); ALBUMIN/GLOBULIN RATIO 0.9 (1.0-2.2); BILIRUBIN,TOTAL 0.5 mg/dL (0.2-1.0); CALCIUM 8.7 mg/dL (8.5-10.3); CREATININE 1.2 mg/dL (0.4-1.0); TOTAL PROTEIN 5.2 g/dL (6.7-8.2)
[2020-04-25 18:24] LABS: FERRITIN 19.4 ng/mL (11.0-306.8)
[2020-04-25 19:08] LABS: FREE T4 (FREE THYROXINE) 0.72 ng/dL (0.58-1.64)
== END 2020-04-25 23:59 | disposition home or self-care (01) ==
LOC: LAB.WCP 14:39
PROVIDERS: ATTEND Family Medicine
DX: I10 Essential (primary) hypertension (principal); D64.9 Anemia, unspecified; E03.9 Hypothyroidism, unspecified
CPT/HCPCS: 36415; 80053; 82607; 82728; 84439; 84443; 85025

== ENCOUNTER 2023-09-10 15:08 | Outpatient (CLI) | payer MEDICARE, MEDICAID | END 2023-09-10 23:59 | disposition short-term general hospital (02) | LOC: EMS 15:08 | DX: R53.1 Weakness (principal); R53.83 Other fatigue; R07.89 Other chest pain; R61 Generalized hyperhidrosis; R00.0 Tachycardia, unspecified; Z20.822 Contact with and (suspected) exposure to COVID-19 | CPT/HCPCS: A0425; A0429; A0888 ==

== ENCOUNTER 2023-12-02 10:00 | Outpatient (CLI) | payer MEDICARE, MEDICAID | END 2023-12-02 10:15 | disposition home or self-care (01) | LOC: LAB.N 10:00 | PROVIDERS: ATTEND Physician Assistant Medical | DX: N30.01 Acute cystitis with hematuria (principal) | CPT/HCPCS: 87077; 87086; 87181 ==

== ENCOUNTER 2024-01-24 07:59 | Outpatient (CLI) | payer MEDICAID | END 2024-01-24 23:59 | disposition E | LOC: EMS 07:59 | DX: I46.9 Cardiac arrest, cause unspecified (principal) | CPT/HCPCS: A0425; A0428 ==